=== PATIENT | male | born 1935 | race Caucasian/White ===

== ENCOUNTER 2017-01-15 14:47 | Inpatient (IN) | payer MEDICARE, OTHER ==
[~2017-01-15] VITALS: Ht 162.6 cm; Wt 99.4 kg
[~2017-01-15 14:47] MED LIST: ARICEPT10 MG PO; BENADRYL 25MG C25 MG PO; COZAAR 50MG TAB50 MG PO; DILTIAZEM 24HR180 M1 PO; FOLIC ACID 1 MG1 MG PO; LASIX40 MG PO; LOPRESSOR 25 MG25 MG PO; METOLAZONE5 MG PO; POTASSIUM CHLO10 MEQ PO; PRAVACHOL20 MG PO; SYNTHROID137 MCG PO
[2017-01-15 16:49] LABS: HEMOGLOBIN 8.5 gm/dl (14.0-17.5); RED BLOOD COUNT 2.69 M/UL (4.20-5.50); WHITE BLOOD COUNT 4.9 K/UL (4.5-11.0)
[2017-01-15] MEDS ORDERED: PLAVIX 75 MG TA75 MG PO (22:05)
[2017-01-15] MEDS ORDERED: KLOR-CON 1010 MEQ PO (22:06)
[2017-01-16 06:02] LABS: HEMOGLOBIN 9.3 gm/dl (14.0-17.5); WHITE BLOOD COUNT 3.7 K/UL (4.5-11.0)
[2017-01-16 06:52] LABS: RED BLOOD COUNT 2.98 M/UL (4.20-5.50)
[2017-01-18 06:22] LABS: HEMOGLOBIN 9.5 gm/dl (14.0-17.5); RED BLOOD COUNT 3.04 M/UL (4.20-5.50)
[2017-01-18 06:23] LABS: WHITE BLOOD COUNT 5.5 K/UL (4.5-11.0)
[2017-01-18] MEDS ORDERED: ECOTRIN81 MG PO (10:31)
[2017-01-18] MEDS ORDERED: ELIQUIS 5 MG TAB5 MG PO (10:32)
[2017-01-18] MEDS ORDERED: VIOS AEROSOL D1 EACH MC (10:32)
[2017-01-18] MEDS ORDERED: ALBUTEROL1.25 MG/3 INH (10:32)
[2017-01-18] MEDS ORDERED: LEVAQUIN750 MG PO (10:46)
[2017-01-18] MEDS ORDERED: BENADRYL 25MG C25 MG PO (11:17)
== END 2017-01-18 12:30 | disposition home or self-care (01) | DRG 193 ==
LOC: ER1 14:47 → M/S 18:24 → ZEROF 18:24 → M/S 21:23
PROVIDERS: Emergency Medicine; Internal Medicine; ADMIT Legal Medicine
PROC: 3E0134Z Introduction of Serum, Toxoid and Vaccine into Subcutaneous Tissue, Percutaneous Approach (ICD-10-PCS; principal; 2017-01-18)
DX: J18.9 Pneumonia, unspecified organism (principal); J96.21 Acute and chronic respiratory failure with hypoxia; N17.9 Acute kidney failure, unspecified; K56.69 Other intestinal obstruction; I48.2 Chronic atrial fibrillation; E03.9 Hypothyroidism, unspecified; I11.0 Hypertensive heart disease with heart failure; I50.9 Heart failure, unspecified; D64.9 Anemia, unspecified; Z23 Encounter for immunization; I27.2 Other secondary pulmonary hypertension; Z99.81 Dependence on supplemental oxygen; R19.7 Diarrhea, unspecified; I25.10 Atherosclerotic heart disease of native coronary artery without angina pectoris; Z95.1 Presence of aortocoronary bypass graft; Z95.5 Presence of coronary angioplasty implant and graft; I25.2 Old myocardial infarction; F03.90 Unspecified dementia, unspecified severity, without behavioral disturbance, psychotic disturbance, mood disturbance, and anxiety; R73.03 Prediabetes; Z80.3 Family history of malignant neoplasm of breast; Z82.49 Family history of ischemic heart disease and other diseases of the circulatory system; Z87.891 Personal history of nicotine dependence; Z79.02 Long term (current) use of antithrombotics/antiplatelets; Z79.899 Other long term (current) drug therapy; E86.0 Dehydration; I45.10 Unspecified right bundle-branch block
CPT/HCPCS: ECHO; 36415; 71010; 80048; 80053; 81001; 82270; 82550; 82553; 82607; 82728; 82746; 83036; 83540; 83735; 83874; 83880; 84484; 85025; 85027; 85610; 85730; 86850; 86900; 86901; 86920; 87040; 87070; 87086; 87205; 93005; 93306; 94640; 94664; 96374; 96375; 99285; G0008; J1644; J1940; J2930; J7030; P9016; Q0163; Q2039

== ENCOUNTER 2017-02-15 06:51 | Inpatient (IN) | payer MEDICARE ==
[~2017-02-15] VITALS: Ht 167.6 cm; Wt 98.8 kg
[~2017-02-15 06:51] MED LIST changes: +ALBUTEROL1.25 MG/3 INH; +ECOTRIN81 MG PO; +ELIQUIS 5 MG TAB5 MG PO; +KLOR-CON 1010 MEQ PO; +LEVAQUIN750 MG PO; +PLAVIX 75 MG TA75 MG PO; +VIOS AEROSOL D1 EACH MC
[2017-02-15 07:26] LABS: HEMOGLOBIN 8.8 gm/dl (14.0-17.5); RED BLOOD COUNT 2.71 M/UL (4.20-5.50); WHITE BLOOD COUNT 7.3 K/UL (4.5-11.0)
[2017-02-15] MEDS ORDERED: ATROVENT INH S2.5 ML INH (11:57)
[2017-02-16 03:58] LABS: RED BLOOD COUNT 2.05 M/UL (4.20-5.50); WHITE BLOOD COUNT 4.9 K/UL (4.5-11.0)
[2017-02-16 03:59] LABS: HEMOGLOBIN 6.6 gm/dl (14.0-17.5)
[2017-02-17 05:38] LABS: HEMOGLOBIN 7.7 gm/dl (14.0-17.5); RED BLOOD COUNT 2.36 M/UL (4.20-5.50); WHITE BLOOD COUNT 4.7 K/UL (4.5-11.0)
[2017-02-17 21:40] LABS: HEMOGLOBIN 9.4 gm/dl (14.0-17.5); RED BLOOD COUNT 2.95 M/UL (4.20-5.50); WHITE BLOOD COUNT 4.6 K/UL (4.5-11.0)
[2017-02-18 04:09] LABS: HEMOGLOBIN 7.6 gm/dl (14.0-17.5); RED BLOOD COUNT 2.42 M/UL (4.20-5.50); WHITE BLOOD COUNT 4.4 K/UL (4.5-11.0)
[2017-02-19 04:01] LABS: HEMOGLOBIN 7.5 gm/dl (14.0-17.5); RED BLOOD COUNT 2.36 M/UL (4.20-5.50); WHITE BLOOD COUNT 3.3 K/UL (4.5-11.0)
[2017-02-20 03:43] LABS: HEMOGLOBIN 7.2 gm/dl (14.0-17.5); RED BLOOD COUNT 2.31 M/UL (4.20-5.50); WHITE BLOOD COUNT 3.6 K/UL (4.5-11.0)
[2017-02-20 11:29] LABS: HEMOGLOBIN 7.5 gm/dl (14.0-17.5)
[2017-02-20 22:20] LABS: HEMOGLOBIN 7.3 gm/dl (14.0-17.5)
[2017-02-21 03:33] LABS: HEMOGLOBIN 7.2 gm/dl (14.0-17.5); RED BLOOD COUNT 2.28 M/UL (4.20-5.50); WHITE BLOOD COUNT 2.7 K/UL (4.5-11.0)
[2017-02-21 10:10] LABS: HEMOGLOBIN 7.4 gm/dl (14.0-17.5)
[2017-02-21 22:06] LABS: HEMOGLOBIN 7.5 gm/dl (14.0-17.5)
[2017-02-22 03:55] LABS: HEMOGLOBIN 7.2 gm/dl (14.0-17.5); RED BLOOD COUNT 2.32 M/UL (4.20-5.50); WHITE BLOOD COUNT 3.1 K/UL (4.5-11.0)
[2017-02-22 20:50] LABS: HEMOGLOBIN 7.8 gm/dl (14.0-17.5)
[2017-02-23 04:59] LABS: HEMOGLOBIN 7.1 gm/dl (14.0-17.5); RED BLOOD COUNT 2.24 M/UL (4.20-5.50); WHITE BLOOD COUNT 3.5 K/UL (4.5-11.0)
[2017-02-24 05:01] LABS: RED BLOOD COUNT 2.27 M/UL (4.20-5.50); WHITE BLOOD COUNT 3.8 K/UL (4.5-11.0)
[2017-02-24 17:23] LABS: HEMOGLOBIN 7.3 gm/dl (14.0-17.5)
[2017-02-25 06:43] LABS: HEMOGLOBIN 7.4 gm/dl (14.0-17.5); RED BLOOD COUNT 2.41 M/UL (4.20-5.50); WHITE BLOOD COUNT 3.5 K/UL (4.5-11.0)
[2017-02-27 08:16] LABS: HEMOGLOBIN 7.4 gm/dl (14.0-17.5); RED BLOOD COUNT 2.41 M/UL (4.20-5.50); WHITE BLOOD COUNT 3.3 K/UL (4.5-11.0)
[2017-02-27 08:21] LABS: BUN/CREATININE RATIO 25 (0-10)
[2017-03-01 05:42] LABS: HEMOGLOBIN 7.8 gm/dl (14.0-17.5); RED BLOOD COUNT 2.51 M/UL (4.20-5.50)
[2017-03-03 06:09] LABS: HEMOGLOBIN 7.6 gm/dl (14.0-17.5); RED BLOOD COUNT 2.45 M/UL (4.20-5.50); WHITE BLOOD COUNT 3.4 K/UL (4.5-11.0)
== END 2017-03-03 16:45 | DRG 207 ==
LOC: ER1 06:51 → ZEROF 09:59 → CCU 09:59 → ZEROF 14:02 → CCU 15:20 → M/S 02-24 16:35
PROVIDERS: Family Medicine; Internal Medicine; Internal Medicine Cardiovascular Disease; Internal Medicine Infectious Disease; ADMIT Internal Medicine
PROC: 0BH17EZ Insertion of Endotracheal Airway into Trachea, Via Natural or Artificial Opening (ICD-10-PCS; principal; 2017-02-15)
PROC: 5A1945Z Respiratory Ventilation, 24-96 Consecutive Hours (ICD-10-PCS; 2017-02-15)
PROC: 0BH17EZ Insertion of Endotracheal Airway into Trachea, Via Natural or Artificial Opening (ICD-10-PCS; 2017-02-17)
PROC: 5A1955Z Respiratory Ventilation, Greater than 96 Consecutive Hours (ICD-10-PCS; 2017-02-17)
PROC: 0BCB8ZZ Extirpation of Matter from Left Lower Lobe Bronchus, Via Natural or Artificial Opening Endoscopic (ICD-10-PCS; 2017-02-18)
PROC: 02HV33Z Insertion of Infusion Device into Superior Vena Cava, Percutaneous Approach (ICD-10-PCS; 2017-02-20)
PROC: 0BCB8ZZ Extirpation of Matter from Left Lower Lobe Bronchus, Via Natural or Artificial Opening Endoscopic (ICD-10-PCS; 2017-02-22)
DX: J96.02 Acute respiratory failure with hypercapnia (principal); I50.31 Acute diastolic (congestive) heart failure; J69.0 Pneumonitis due to inhalation of food and vomit; I50.33 Acute on chronic diastolic (congestive) heart failure; J18.9 Pneumonia, unspecified organism; I13.0 Hypertensive heart and chronic kidney disease with heart failure and stage 1 through stage 4 chronic kidney disease, or unspecified chronic kidney disease; E46 Unspecified protein-calorie malnutrition; D61.818 Other pancytopenia; E66.2 Morbid (severe) obesity with alveolar hypoventilation; J44.0 Chronic obstructive pulmonary disease with (acute) lower respiratory infection; T17.890A Other foreign object in other parts of respiratory tract causing asphyxiation, initial encounter; E87.2 Acidosis; N17.9 Acute kidney failure, unspecified; J98.11 Atelectasis; C94.6 Myelodysplastic disease, not elsewhere classified; J96.01 Acute respiratory failure with hypoxia; I25.10 Atherosclerotic heart disease of native coronary artery without angina pectoris; E03.9 Hypothyroidism, unspecified; E78.5 Hyperlipidemia, unspecified; N18.3 Chronic kidney disease, stage 3 (moderate); I27.2 Other secondary pulmonary hypertension; Z91.041 Radiographic dye allergy status; Z79.02 Long term (current) use of antithrombotics/antiplatelets; Z79.899 Other long term (current) drug therapy; Z87.891 Personal history of nicotine dependence; Z95.1 Presence of aortocoronary bypass graft; I45.10 Unspecified right bundle-branch block; G47.33 Obstructive sleep apnea (adult) (pediatric); I48.2 Chronic atrial fibrillation; D50.9 Iron deficiency anemia, unspecified; D69.6 Thrombocytopenia, unspecified; K74.60 Unspecified cirrhosis of liver; D46.9 Myelodysplastic syndrome, unspecified; I95.2 Hypotension due to drugs; T50.905A Adverse effect of unspecified drugs, medicaments and biological substances, initial encounter; E53.8 Deficiency of other specified B group vitamins; Z68.37 Body mass index [BMI] 37.0-37.9, adult
CPT/HCPCS: 31500; 36415; 36600; 71010; 71020; 80048; 80053; 80162; 80202; 82272; 82550; 82553; 82607; 82728; 82746; 82803; 83540; 83550; 83605; 83735; 83874; 83880; 84207; 84439; 84443; 84484; 85014; 85018; 85025; 85027; 85610; 85730; 86850; 86900; 86901; 86920; 87040; 87070; 87205; 92526; 92610; 93005; 93308; 94002; 94003; 94640; 94660; 94664; 94668; 96374; 96375; 97110; 97116; 97530; 97535; 99291; 99292; A4628; C1751; J0330; J0456; J0692; J1120; J1160; J1335; J1940; J1956; J2060; J2250; J3370; J7030; J7040; J7050; J7070; P9016